=== PATIENT | male | born 1990 | race Caucasian/White ===

== ENCOUNTER 2018-01-16 18:04 | Emergency (ER) | payer OTHER ==
[~2018-01-16] VITALS: Ht 172.7 cm; Wt 77.6 kg
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
[2018-01-16] MEDS ORDERED: ACETAMINOPHEN ES 500 MG TABLET PO ONE (19:00)
[2018-01-16] MEDS ORDERED: ACETAMINOPHEN ES 500 MG TABLET ONE (19:18)
--- NOTE | 2018-01-16 19:30 | NUR ---
RECEIVED REPORT FROM IMELDA JERNIGAN FOR [facility]IE
--- NOTE | 2018-01-16 19:34 | NUR ---
PT BROUGHT BY RADIOLOGY FOR CORIE
--- NOTE | 2018-01-16 19:51 | NUR ---
PT RETURNED FROM RADIOLOGY
--- NOTE | 2018-01-16 20:38 | NUR ---
Patient discharged to home in stable condition. Written and verbal after care instructions given. Patient verbalizes understanding of instruction. Pt ambulatory with a steady gait
[2018-01-16 20:40] VITALS: BP 151/81
== END 2018-01-16 20:41 | disposition home or self-care (01) ==
LOC: ER 18:10
DX: S80.211A Abrasion, right knee, initial encounter (principal); M25.512 Pain in left shoulder; M54.6 Pain in thoracic spine; R51 Headache; V49.49XA Driver injured in collision with other motor vehicles in traffic accident, initial encounter; Y93.89 Activity, other specified; Y92.410 Unspecified street and highway as the place of occurrence of the external cause; Y99.8 Other external cause status
CPT/HCPCS: 70450; 71045; 72125; 73030; 73560; 99284; A4606; L0172; Z7610